=== PATIENT | male | born 1930 | race Caucasian/White ===

== ENCOUNTER 2017-04-24 15:55 | Inpatient (IN) ==
[2017-04-24] MEDS ORDERED: SODIUM CHLORIDE 0.9% 1,000 ML IV STA (16:16)
--- NOTE | 2017-04-24 16:34 | CT Report ---
CT head/brain wo con Indication: Mental status changes. CT BRAIN WITHOUT CONTRAST DLP: 970 mGy*cm. One or more of the following dose reduction techniques was used: Automated exposure control, adjustment of the mA and/or kV according the patient size, or use of iterative reconstruction techniques. Comparison: None. Date of admission: 04/24/2017. Technique: Axial noncontrast CT images of the brain were obtained. Findings: No acute hemorrhage, mass or mass effect. Generalized atrophy is present with prominence of ventricular system. Patchy periventricular white matter hypodensity noted as well. Cortical campos-white junction and structures of the basal ganglia remain well-defined. Mucosal thickening of the ethmoid and nodular mucosal thickening of the left maxillary sinus noted. Remainder paranasal sinuses and mastoid air cells are clear. Impression: 1. No acute intracranial pathology. Generalized atrophy with ventricular prominence. Chronic small vessel ischemic change deep white matter. 2. Ethmoid and left maxillary sinusitis, chronic. PROCEDURE INTERPRETED AT [facility] DEPARTMENT OF RADIOLOGY Final Report Signed by: Manuelito Meyer M.D.
--- NOTE | 2017-04-24 16:44 | XRay Report ---
XR chest 1V portable Indication: Altered mental status. Chest one view: Comparison 10/02/2014. Heart size and mediastinal contour remain normal. Scarring at the left lung base is again noted. Lungs are otherwise clear. Pleural spaces are clear. Impression: No acute cardia pulmonary disease. Chronic scarring left lung base. PROCEDURE INTERPRETED AT [facility] DEPARTMENT OF RADIOLOGY Final Report Signed by: Manuelito Meyer M.D.
[2017-04-24 17:03] LABS: Basophils % 0.6 % (0.0-0.8); Eosinophils % 0.5 % (0.00-10.9); Hematocrit 29.3 VOL% (42.0-52.0); Immature Granulocytes % 0.6 %; Immature Granulocytes Absolute 0.04 #; Lymphocytes # 1.2 10*3/uL (1.4-4.0); Mean Corpuscular HGB Conc 34.1 GM/DL (32-36); Mean Corpuscular Hemoglobin 30 PG (27-34); Mean Corpuscular Volume 86.9 FL (87-102); Mean Platelet Volume 9.5 FL (9.6-12.0); Monocytes # 0.8 10*3/uL (0.11-0.8); Monocytes % 11.9 % (1.7-12.7); Neutrophils # 4.4 10*3/uL (1.4-7.4); Neutrophils % 67.4 % (38.7-73.9); Platelet Count 169 T/CUMM (130-400); Red Blood Count 3.37 MC/CUMM (3.8-5.5); Red Cell Distribution Width 14.6 % (9.3-17.3); White Blood Count 6.5 T/CUMM (4-12)
--- NOTE | 2017-04-24 17:30 | Hospitalist History & Physical ---
Assessment and Plan - Time spent with patient Time spent with patient: Greater than 30 minutes (1) Hematuria Status: Acute Assessment and plan: 86-year-old white male with multiple medical problems admitted by the hospitalist service with hematuria, dehydration, and altered mental status. Patient will be given some IV fluids and allowed to eat this evening. Will consult urology for evaluation in the morning for the hematuria and mass seen on CT. Once his medicines are entered into the system they will be reconciled and restarted. Dr. Dutta will see and examine patient and further recommendations to follow. Current Visit: Yes (2) Dysphagia Status: Acute Current Visit: Yes (3) Diabetes Status: Acute Current Visit: No (4) Anemia Status: Acute Current Visit: No Qualifiers: Anemia type: iron deficiency History of Present Illness Chief complaint: Peeing blood History of present illness: Mr. Singh is a 86 year old white male history of diabetes, depression, Alzheimer's dementia, and GERD presenting to the ED [facility] evaluation of hematuria and altered mental status. Patient 's states patient has not had anything to eat or drink nor taken his medicine since about lunchtime yesterday because he will not wake up long enough to do that. Patient had a CT scan that was done on 04/18 that showed soft tissue mass within the right renal pelvis that resulted in obstruction with it being questionable neoplasm. Patient's states Dr. Polk his PCP in [place] was supposed to get him follow-up with a urologist and that never happened. Patient is awake and alert but he is somewhat confused about his current illness. His lips and skin are dry but otherwise his physical exam is normal. He does have a 3/6 heart murmur heard on exam. Patient denies headache, chest pain, shortness of breath, abdominal pain, low back pain with lower extremity edema. Patient does complain of blurry vision, dysphagia, and burning with urination. His labs from [facility] are relatively normal. He does have a mildly elevated creatinine of 1.6 indicative of his dehydration. His urine is red and cloudy with large erythrocytes. 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 CT the head is negative for acute intracranial process. After discussion with Dr. Coronado the ED physician Dr. Dutta the admitting hospitalist, it was agreed patient be admitted for further evaluation. Once medicines are entered into the [facility] system they will be reconciled. Patient is a full code. Home Medications Medication Instructions Recorded Confirmed Type FLUoxetine [PROzac] 40 mg PO BID 06/19/15 05/02/16 History Gabapentin 300 mg PO BID 06/19/15 05/02/16 History Pioglitazone [Actos] 45 mg PO DAILY 06/19/15 05/02/16 History clonazePAM [Clonazepam] 0.5 mg PO BID PRN 06/19/15 05/02/16 History Donepezil [Aricept] 10 mg PO BEDTIME 08/27/15 05/02/16 History Metformin HCl [Metformin HCl ER] 250 mg PO BID PRN 08/27/15 05/02/16 History Albuterol Inhaler [Proventil 2 puff INH Q6H PRN 03/18/16 05/02/16 History Inhaler] Hypromellose [GenTeal Severe 0.3% 1 drops BOTH EYES DAILY 03/18/16 05/02/16 History Oph Gel] Multivitamin/Iron/Folic Acid 1 tablet PO DAILY 03/18/16 05/02/16 History [Centrum Complete Multivit Tab] Tramadol HCl [Tramadol Tab] 50 mg PO QID PRN 03/18/16 05/02/16 History Iron (Carbonyl) [Feosol Natural 45 mg PO BID tablet 03/21/16 Rx Release Tab] Ranitidine Tab [Zantac Tab] 150 mg PO BID #60 tablet 03/21/16 Rx Naproxen [Naprosyn Tab] 500 mg PO DAILY 05/02/16 05/02/16 History Allergies Allergy/AdvReac Type Severity Reaction Status Date / Time aspirin Allergy Swelling Verified 08/27/15 13:48 of Lip/Tongue/Throat codeine Allergy Swelling Verified 08/27/15 13:48 of Lip/Tongue/Throat iv dye Allergy HIVES Uncoded 08/27/15 13:48 Medical,Surgical,& Family Hx - Medical History Cardio: History of: 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") Endocrine: History of: Diabetes Mellitus (NIDDM) Respiratory: History of: Asthma, Bronchitis, COPD, Obstructive Sleep Apnea ( noncompliant with Cpap) Genitourinary: History of: Prostate Problems (states"prostate problem from urinating at night") Gastrointestinal: History of: GERD, GI Problems (constipation) Musculoskeletal: History of: Musculoskeletal Problems (L ankle issues, right shoulder pains) - Surgical History HEENT Surgeries: Surgical HX of: Tonsilectomy & Adenoidectomy (194) Abdominal Surgeries: Surgical HX of: Appendectomy (1949) - Family History Family History: Reports;: Family Hypertension (mother), Family Stroke - Social History Smoking Status: Never smoker Frequency of Alcohol Use: None Type of Drug Use: None Marital Status: Lives With:: Spouse Functional capacity: uses cane/walker Review of systems: A complete 10 system review of systems was obtained and pertinent positives and negatives per HPI Exam - Constitutional Vitals: Period Temp Pulse Resp BP Sys/Velazquez Pulse Ox Last 24 Hr 97.4 F-97.4 F 89-89 18-18 162-162/88-88 96 Exam: Constitutional System: [Mild] distress. [No] tremulousness. Head: Normocephalic, atraumatic. Ears, Nose and Throat System: No evidence of Otitis or Mastoiditis. No epistaxis or discharge Eyes System: Pupils equal, round, and reactive. Extraocular muscles intact. Neck: Supple, without adenopathy, [No] jugular venous distention. No thyromegaly , neck mass, or prior surgery apparent. Respiratory System: Chest [clear] to auscultation. Cardiovascular System: Heart with [regular] rate and rhythm. 3/6 murmur. GI System: Abdomen [soft], [non]tender. [Normo]active bowel sounds present. Musculoskeletal System: limbs with [no] pedal edema. [Full] distal pulses. Neurological System: [No discernable] sensory deficit. [No] aphasia Psychiatric System: Conversation is rational but he does get confused during conversation Results - Labs CBC & BMP: 04/24/17 16:53 Lab Results: I have reviewed the past 24 hour labs - Diagnostic Findings Procedure: Chest x-ray: report reviewed by me (No acute process. Chronic scarring left lung base.), CT: report reviewed by me (CT the head shows no acute intracranial pathology with generalized atrophy. Chronic small vessel ischemic change deep white matter. Ethmoid and left maxillary sinusitis chronic.)
[2017-04-24 17:34] LABS: Albumin 3.4 G/DL (3.4-5.0); Bilirubin,Total 0.6 MG/DL (0.2-1.0); Calcium 8.8 MG/DL (8.5-10.1); Osmolality,Calculated 274.8 MOS/KG (273-304); Total Protein 6.5 G/DL (6.4-8.3)
--- NOTE | 2017-04-24 17:57 | Emergency Department Note ---
I, Felicia Wood, am scribing for, and in the presence of, Edu Coronado MD 16: 19. IIvonne Kevin Lee, MD, personally performed the services described in this documentation, ascribed by Felicia Wood in my presence, and it is both accurate and complete 757 . Arrival - Arrival Chief Complaint: Altered Mental Status ED Nursing Triage Note: pt was transfered from [facility] for alt loc and ?renal mass. pt has had multi falls Mode of Arrival: Stretcher Limitations: Altered Mental Status (pleasantly confused) Source: Patient, Significant other - History of Present Illness HPI Narrative: Pt is a 86 y/o male who was transferred from [facility] ED for further evaluation of AMS. Pt is in early stages of ALheimzer's, and is pleasantly confused only oriented to self and place at this time. Pt c/o of dysuria, hematuria, no PO intakes since yesterday, and intermittently productive cough. Pt's PCP is Dr. Polk. Spouse notes next consult that they needed to do was with a neurologist. Onset (ago): day(s) Consistency: constant, intermittent Severity: mild, moderate Severity scale (1-10): 3 Allergies/Adverse Reactions: Allergies Allergy/AdvReac Type Severity Reaction Status Date / Time aspirin Allergy Swelling Verified 08/27/15 13:48 of Lip/Tongue/Throat codeine Allergy Swelling Verified 08/27/15 13:48 of Lip/Tongue/Throat iv dye Allergy HIVES Uncoded 08/27/15 13:48 Home Medications: Home Medications Medication Instructions Recorded Confirmed Type FLUoxetine [PROzac] 40 mg PO BID 06/19/15 05/02/16 History Gabapentin 300 mg PO BID 06/19/15 05/02/16 History Pioglitazone [Actos] 45 mg PO DAILY 06/19/15 05/02/16 History clonazePAM [Clonazepam] 0.5 mg PO BID PRN 06/19/15 05/02/16 History Donepezil [Aricept] 10 mg PO BEDTIME 08/27/15 05/02/16 History Metformin HCl [Metformin HCl ER] 250 mg PO BID PRN 08/27/15 05/02/16 History Albuterol Inhaler [Proventil 2 puff INH Q6H PRN 03/18/16 05/02/16 History Inhaler] Hypromellose [GenTeal Severe 0.3% 1 drops BOTH EYES DAILY 03/18/16 05/02/16 History Oph Gel] Multivitamin/Iron/Folic Acid 1 tablet PO DAILY 03/18/16 05/02/16 History [Centrum Complete Multivit Tab] Tramadol HCl [Tramadol Tab] 50 mg PO QID PRN 03/18/16 05/02/16 History Iron (Carbonyl) [Feosol Natural 45 mg PO BID tablet 03/21/16 Rx Release Tab] Ranitidine Tab [Zantac Tab] 150 mg PO BID #60 tablet 03/21/16 Rx Naproxen [Naprosyn Tab] 500 mg PO DAILY 05/02/16 05/02/16 History Review of System - Review of System ROS unobtainable: due to mental status (mildly confused) Medical,Surgical,& Family Hx - Medical History Cardio: History of: 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") Endocrine: History of: Diabetes Mellitus (NIDDM) Respiratory: History of: Asthma, Bronchitis, COPD, Obstructive Sleep Apnea ( noncompliant with Cpap) Genitourinary: History of: Prostate Problems (states"prostate problem from urinating at night") Gastrointestinal: History of: GERD, GI Problems (constipation) Musculoskeletal: History of: Musculoskeletal Problems (L ankle issues, right shoulder pains) - Surgical History HEENT Surgeries: Surgical HX of: Tonsilectomy & Adenoidectomy (1946) Abdominal Surgeries: Surgical HX of: Appendectomy (1949) - Family History Family History: Reports;: Family Hypertension (mother), Family Stroke - Social History Smoking Status: Never smoker Frequency of Alcohol Use: None Type of Drug Use: None Marital Status: Lives With:: Spouse Functional capacity: independent ambulation Exam Vital Signs: Vital Signs Temperature 97.4 F L 04/24/17 15:59 Pulse Rate 89 04/24/17 15:59 Respiratory Rate 18 04/24/17 15:59 Blood Pressure 162/88 04/24/17 15:59 O2 Sat by Pulse Oximetry 96 04/24/17 15:59 - General General appearance: alert, in no apparent distress, other (spouse notes confusion is worse than nml) - Head Head exam: Present: atraumatic, normocephalic - Eye Eye exam: Present: PERRL, EOMI - ENT ENT exam: Present: mucous membranes dry. Absent: mucous membranes moist - Neck Neck exam: Present: full ROM - Chest Chest inspection: Present: symmetric chest wall rise - Respiratory Respiratory exam: Present: normal lung sounds bilaterally. Absent: respiratory distress - Cardiovascular Cardiovascular exam: Present: regular rate, normal rhythm, normal heart sounds - Abdominal Exam Abdominal exam: Present: soft. Absent: tenderness - Extremities Exam Extremities exam: Present: full ROM. Absent: tenderness, pedal edema - Neurological Exam Neurological exam: Present: alert, CN II-XII intact. Absent: oriented X3 (x2), motor sensory deficit - Psychiatric Psychiatric exam: Absent: normal mood (pleasantly confused) - Skin Skin exam: Present: warm, dry Course Course Narrative: will admit for further workup of AMS and urology consult for renal mass and hematuria Results - Labs CBC & BMP: 04/24/17 16:53 04/24/17 16:53 Lab Results: I have reviewed the patients labs Labs: Laboratory Tests 04/24/17 16:53 WBC 6.5 RBC 3.37 L Hgb 10.0 L Hct 29.3 L MCV 86.9 L Plt Count 169 MPV 9.5 L Lymph % (Auto) 19.0 L Lymph # (Auto) 1.2 L Laboratory Tests 04/24/17 16:53 Sodium 137 Potassium 4.0 Chloride 102 BUN 25 H Creatinine 1.50 H GFR Calculation 46 Glucose 69 L Albumin/Globulin Ratio 1.0 L - Diagnostic Findings Procedure: Chest x-ray: report reviewed by me (No acute cardia pulmonary disease. Chronic scarring left lung base.), CT: report reviewed by me (Head wo con: 1. No acute intracranial pathology. Generalized atrophy with ventricular prominence. Chronic small vessel ischemic change deep white matter. 2. Ethmoid and left maxillary sinusitis, chronic.) Disposition Clinical Impression: Altered mental status, Hematuria, Dehydration, Renal mass Case discussed with: patient, patient's family Disposition: Still a Patient Condition: Stable
[2017-04-24] MEDS ORDERED: LORazepam 2 MG/1 ML VIAL IV STA (19:09)
[2017-04-24] MEDS ORDERED: LORazepam 2 MG/1 ML VIAL ONE (19:11)
[2017-04-24] MEDS ORDERED: GLUCAGON 1 MG VIAL IM PRN (19:33)
[2017-04-24] MEDS ORDERED: ONDANSETRON 4 MG/2 ML VIAL IV PRN (19:33)
[2017-04-24] MEDS ORDERED: DEXTROSE 50% 25 GM/50 ML SYRINGE IV PRN (19:33)
[2017-04-24] MEDS: SODIUM CHLORIDE 0.9% 1,000 ML IV SCH (21:22)
[2017-04-24] MEDS: ENOXAPARIN 40 MG/0.4 ML SYRINGE SUBCUT SCH (21:23)
[2017-04-24] MEDS: INSULIN LISPRO 100 UNIT/ML SUBCUT SCH (21:24)
[2017-04-24 22:20] LABS: Apearance,Urine CLOUDY (Clear); Bilirubin,Urine Negative (Negative); Blood, Urine Large mg/dL (Negative); Glucose,Urine (UA) 50 mg/dL (Negative); Ketones,Urine 5 mg/dL (Negative); Nitrite,Urine Negative (Negative); Protein,Urine 100 MG/DL; RBC,Urine 3799 /HPF (0-4); Urine Color Red (Yellow); Urine Specific Gravity 1.011 (1.001-1.035); Urine Urobilinogen < 2.0 EU/DL (0.2-1.0)
[2017-04-25] MEDS: ACETAMINOPHEN 325 MG TABLET PO PRN ×3 (03:33→21:28)
[2017-04-25] MEDS ORDERED: guaiFENesin 200 MG/10 ML UDCUP PO PRN (03:41)
[2017-04-25 05:11] LABS: Basophils % 0.7 % (0.0-0.8); Eosinophils # 0.1 10*3/uL (0.0-0.87); Eosinophils % 2.2 % (0.00-10.9); Hematocrit 27.9 VOL% (42.0-52.0); Hemoglobin 9.2 GM/DL (14.0-18.0); Immature Granulocytes % 0.5 %; Immature Granulocytes Absolute 0.03 #; Lymphocytes % 16.5 % (21.2-54.2); Mean Corpuscular Hemoglobin 29 PG (27-34); Mean Corpuscular Volume 87.5 FL (87-102); Mean Platelet Volume 9.9 FL (9.6-12.0); Monocytes # 0.8 10*3/uL (0.11-0.8); Monocytes % 13.5 % (1.7-12.7); Neutrophils % 66.6 % (38.7-73.9); Platelet Count 170 T/CUMM (130-400); Red Blood Count 3.19 MC/CUMM (3.8-5.5); Red Cell Distribution Width 14.4 % (9.3-17.3)
[2017-04-25 05:40] LABS: Calcium 8.6 MG/DL (8.5-10.1); Osmolality,Calculated 280.5 MOS/KG (273-304)
[2017-04-25] MEDS: INSULIN LISPRO 100 UNIT/ML SUBCUT SCH ×4 (08:37→20:36)
[2017-04-25] MEDS: PANTOPRAZOLE 40 MG TABLET PO SCH ×2 (09:52→12:21)
--- NOTE | 2017-04-25 10:51 | Hospitalist Progress Note ---
Assessment and Plan (1) Hematuria Status: Acute Assessment and plan: Impression: 1. Gross hematuria. 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 2. Abnormal mental status. With hallucinations and dementia, I am concerned about dementia with Lewy bodies. 3. Type II DM Plan: Urology evaluation. Resume home medications. This note was completed using [employer] ([employer]) voice recognition software. There may be pmp certified project manager errors as a result. Current Visit: Yes Hospitalist: Subjective Interval history: Follow-up hematuria with renal mass and confusion. The patient has apparently been receiving a workup for hematuria for the past couple of months. After several CT scans and an MRI, it appears that he has a right renal mass with partial obstruction. There is also question of a mass in the base of the left lung. Urology has not yet seen the patient regarding the above. The patient was sent over from his local hospital when he had presented for evaluation of hematuria. He was also confused. reports a subacute onset of confusion, with associated decrease in his memory and hallucinations. The patient is apparently been seeing people in his house that are not there. He also has had trouble recognizing familiar faces in surroundings. He was started on Aricept and Namenda, but was apparently not able to tolerate the Aricept. He is currently on Namenda, gabapentin, Klonopin, and Prozac for various problems including anxiety and peripheral neuropathy. He has been a diabetic for years. There is no history of any travel outside of the [place] over the past 50 years. Exam - Constitutional Vitals: Period Temp Pulse Resp BP Sys/Velazquez Pulse Ox Last 24 Hr 97.4 F-98.3 F 80-89 10-20 140-175/72-103 90-96 Vital signs are noted above. Heart is regular with no murmur or gallop. Lungs are clear with no rales or wheezes. Abdomen is soft without any significant mass or tenderness. He is obviously confused. Results - Labs CBC & BMP: 04/25/17 04:27 04/25/17 04:27 Lab Results: I have reviewed the past 24 hour labs
[2017-04-25] MEDS: clonazePAM 0.5 MG TABLET PO PRN ×2 (12:21→21:13)
[2017-04-25] MEDS: SODIUM CHLORIDE 0.9% 1,000 ML IV SCH ×2 (12:35→21:21)
--- NOTE | 2017-04-25 13:56 | Urology Consultation ---
Assessment and Plan - Time spent with patient Time spent with patient: Greater than 30 minutes (1) Renal mass Status: Acute Current Visit: Yes (2) Renal mass, right Status: Acute Assessment and plan: Reported right renal pelvic mass on MRI. This has not been evaluated with ureteroscopy or biopsy. This would require a general anesthetic. I have talked to the patient's , and she will speak with the patient's sons. They feel that the patient should undergo any procedure possible to determine etiology of hematuria. However, the is unsure if the patient wants to undergo surgery. He has altered mental status, and they will have to decide if they would like to pursue further workup. The patient is a , and he has [facility]% [place] at the [place] [facility]. He has been followed by the [place] [facility], but has not been seen for hematuria. I spoke with the [place] [facility], and the patient missed a previous appointment. The states she was not aware of the appointment. I have asked the nursing staff to obtain the MRI images from [facility]. We will obtain a renal ultrasound here. Current Visit: Yes (3) Hematuria Status: Acute Assessment and plan: Gross hematuria, this is been intermittent for 1 year. Likely related with upper tract lesion. We will need further workup. The patient had appointment with the [place] [facility] for further workup, but the would like to pursue workup here. I have discussed that he will need general anesthetic, and she wants to speak with her sons prior to making that decision. Current Visit: Yes Qualifiers: Hematuria type: gross Qualified Code(s): R31.0 - Gross hematuria (4) Altered mental status Status: Acute Assessment and plan: Altered mental status with reported dementia. Reports visual hallucinations for some time. I discussed with the that this is unlikely related with any renal lesions, unless he had metastatic disease to the brain. She feels this may be related with medications or worsening dementia. Current Visit: Yes (5) Dehydration Status: Acute Assessment and plan: Dehydration with creatinine of 1.40. [place] in [place] at the [place] [facility] [place] 1.1. [facility] IV hydration will assist with decreasing hematuria, and allow recovery of renal function prior to any planned anesthetic. I have asked to obtain imaging from the MRI center. Will order renal ultrasound here. I will follow-up with the family. I will ask the hospitalist service to evaluate him for surgical intervention. The record reports aortic valvular disease. He will have to be evaluated for surgical intervention prior to any of this. Current Visit: Yes History of Present Illness - Data of Consult Patient: new to practice - Consult Narrative History of present illness: Mr. Singh is a 86 year old male who was seen in our practice many years ago. He has not been seen for over 3 years. His reports he has been followed by the [place] [facility]. I have phoned them, and he had been scheduled for cystoscopy, but never had this appointment. His reports she has had worsening confusion with hallucinations over the last several weeks. He has had recurrent gross hematuria for almost 6 months. An outside physician obtain a CT scan and a MRI with contrast that demonstrated a questionable right renal pelvic mass. He has had complaints of intermittent right renal pain with flank pain and right lower quadrant pain. His reports chronic constipation. No significant unexplained weight loss. He has been dieting for diabetes. He reportedly has Alzheimer's. Over the last week he has been somewhat combative. His reports this is gotten progressively worse in the last several months. No nausea vomiting. Onset of hematuria has been gradual. It is intermittent. It seems to be worsening. Intermittent clots. 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 This is been followed for "20 years "and he had elected for nonoperative management. He had been on Flomax and finasteride prescribed by the [place]. CC: Wilber Bean MD Hematuria with possible right renal pelvic mass - Home Medications and Allergies Home Medications: Home Medications Medication Instructions Recorded Confirmed Type FLUoxetine [PROzac] 40 mg PO BID 06/19/15 04/25/17 History Gabapentin 300 mg PO BID 06/19/15 04/25/17 History Pioglitazone [Actos] 45 mg PO DAILY 06/19/15 04/25/17 History clonazePAM [Clonazepam] 0.5 mg PO BID PRN 06/19/15 04/25/17 History Donepezil [Aricept] 10 mg PO BEDTIME 08/27/15 04/25/17 History Albuterol Inhaler [Proventil 2 puff INH Q6H PRN 03/18/16 04/25/17 History Inhaler] Hypromellose [GenTeal Severe 0.3% 1 drops BOTH EYES DAILY 03/18/16 04/25/17 History Oph Gel] Tramadol HCl [Tramadol Tab] 50 mg PO QID PRN 03/18/16 04/25/17 History ALPRAZolam [Alprazolam] 0.25 mg PO TID PRN 04/25/17 04/25/17 History Acetaminophen Tab [Tylenol Tab] 500 mg PO Q6HR PRN 04/25/17 04/25/17 History Albuterol Inhaler [Proventil 2 puff INH Q6H PRN 04/25/17 04/25/17 History Inhaler] Cholecalciferol (Vitamin D3) 400 unit PO DAILY 04/25/17 04/25/17 History [Vitamin D3] Famotidine [Pepcid AC] 20 mg PO DAILY 04/25/17 04/25/17 History Finasteride 5 mg PO DAILY 04/25/17 04/25/17 History Loratadine Tab [Claritin Tab] 10 mg PO DAILY 04/25/17 04/25/17 History Memantine HCl [Namenda] 10 mg PO BID 04/25/17 04/25/17 History Montelukast Tab [Singulair Tab] 10 mg PO DAILY 04/25/17 04/25/17 History Nitrofurantoin Macro/[place] 100 mg PO BID 04/25/17 04/25/17 History [Macrobid] Nitroglycerin Sl Tab [Nitrostat] 0.4 mg SL Q5M PRN 04/25/17 04/25/17 History Pantoprazole Tab [Protonix Tab] 40 mg PO BID 04/25/17 04/25/17 History Promethazine Tab [Phenergan Tab] 25 mg PO Q6H PRN 04/25/17 04/25/17 History Simethicone 180 mg PO DAILY 04/25/17 04/25/17 History Allergies/Adverse Reactions: Allergies Allergy/AdvReac Type Severity Reaction Status Date / Time aspirin Allergy Swelling Verified 08/27/15 13:48 of Lip/Tongue/Throat codeine Allergy Swelling Verified 08/27/15 13:48 of Lip/Tongue/Throat iv dye Allergy HIVES Uncoded 08/27/15 13:48 ROS unobtainable: due to mental status - Constitutional Constitutional: Present: fatigue, frequent falls (Long history, refused surgical intervention per ENT (according to )), weakness - EENT Eyes: Absent: diplopia Ears: Present: decreased hearing Nose, mouth and throat: Absent: dysphagia, epistaxis, hoarseness - Cardiovascular Cardiovascular: Present: chest pain at rest (Left chest wall pain), edema ( Trace edema to lower extremities) - Respiratory Respiratory: Present: cough, pain on inspiration (Left chest wall) - Gastrointestinal Gastrointestinal: Present: constipation. Absent: hematemesis, hematochezia - Genitourinary Genitourinary: Present: hematuria, urinary frequency, urinary incontinence. Absent: scrotal swelling - Musculoskeletal Musculoskeletal: Present: arthralgias - Neurological Neurological: Present: behavioral changes, confusion, memory loss - Psychiatric Psychiatric: Present: auditory hallucinations, memory loss - Endocrine Endocrine: Present: other (Diabetes). Absent: cold intolerance, heat intolerance - Hematologic/Lymphatic Hematologic/Lymphatic: Present: easy bruising. Absent: easy bleeding Exam - Constitutional Vitals: Period Temp Pulse Resp BP Sys/Velazquez Pulse Ox Last 24 Hr 97.4 F-98.4 F 80-95 10-20 140-181/72-103 90-96 General appearance: no acute distress, other (Sleeping at time of exam) - Head Head exam: Present: normal inspection, atraumatic - Eye Eye exam: Absent: conjunctival injection - ENT ENT exam: Present: normal oropharynx - Neck Neck exam: Present: normal inspection - Respiratory Respiratory exam: Present: clear to auscultation bilaterally. Absent: rales, rhonchi - Cardiovascular Cardiovascular exam: Present: regular rate and rhythm - GI/Abdominal GI/Abdominal exam: Present: normal bowel sounds, soft. Absent: rebound - Genitourinary Genitourinary: scrotum without lesions, cysts, edema or rash, penis with no lesions or discharge (Uncircumcised phallus; prostate exam deferred due to patient sleeping and agitation ( reports he just went to sleep and has been combative)) - Extremities Exam Extremities exam: Present: normal capillary refill. Absent: edema - Back Exam Back exam: Absent: CVA tenderness (L), CVA tenderness (R) - Neurological Exam Neurological exam: Present: altered - Psychiatric Psychiatric exam: Present: agitated - Skin Skin exam: Present: warm, dry Results - Labs CBC & BMP: 04/25/17 04:27 04/25/17 04:27 Lab Results: I have reviewed the past 24 hour labs - Diagnostic Findings Procedure: CT Abdomen and Pelvis: report reviewed by me (Outside CT scan report of right renal pelvic soft tissue lesion; left partial staghorn calculus), MRI: report reviewed by me (Outside MRI with reported right renal pelvic lesion consistent with possible urothelial carcinoma) Medical,Surgical,& Family Hx - Medical History Cardio: History of: 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") Psychological: History of: Psychiatric Problems (Hallucinations, visual) Neurology: History of: Dementia HEENT: History of: HEENT Problems (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) Endocrine: History of: Diabetes Mellitus (NIDDM) Respiratory: History of: Asthma, Bronchitis, COPD, Obstructive Sleep Apnea ( noncompliant with Cpap) Genitourinary: History of: Kidney Stones (Left upper pole partial staghorn calculus), Prostate Problems (states"prostate problem from urinating at night") , Problems (Gross hematuria) Gastrointestinal: History of: GERD, GI Problems (constipation) Musculoskeletal: History of: Musculoskeletal Problems (L ankle issues, right shoulder pains) Hematology: History of: Anemia - Surgical History HEENT Surgeries: Surgical HX of: Tonsilectomy & Adenoidectomy (1946) Abdominal Surgeries: Surgical HX of: Appendectomy (1949) - Family History Family History: Reports;: Family Hypertension (mother), Family Stroke - Social History Smoking Status: Former smoker Have you smoked in the last 12 months: No Time spent discussing smoking cessation with patient: 3 to 10 minutes Frequency of Alcohol Use: None Type of Drug Use: None Marital Status: Lives With:: Spouse
--- NOTE | 2017-04-25 16:05 | Ultrasound Report ---
Renal ultrasound Indication: Hematuria, right renal pelvis mass Comparison: None available Findings: Kidneys are normal in size. There is suggestion of a dilated calyx versus of parapelvic cyst in the upper pole the right kidney. There is a calculus in the upper pole the left kidney 2.4 x 2.1 cm in size.. No hydronephrosis or nephrolithiasis is seen. The right renal length is 12.0 cm. The left renal length is 12.1 cm. No free fluid or other abnormality is seen. Impression: Left-sided nephrolithiasis. Right parapelvic cyst versus dilated calyx upper pole. No other evidence of abnormality demonstrated. Ultrasound images stored and captured. PROCEDURE INTERPRETED AT [facility] DEPARTMENT OF RADIOLOGY Final Report Signed by: Dr. Song Mcginnis
[2017-04-25] MEDS: HALOPERIDOL 5 MG/ML AMP IV PRN (16:26)
[2017-04-25] MEDS: ENOXAPARIN 40 MG/0.4 ML SYRINGE SUBCUT SCH (21:12)
[2017-04-25] MEDS: MEMANTINE 5 MG TABLET PO SCH (21:13)
[2017-04-25] MEDS: GABAPENTIN 300 MG CAPSULE PO SCH (21:13)
[2017-04-25] MEDS: FLUoxetine 20 MG CAPSULE PO SCH (21:13)
[2017-04-26] MEDS: HALOPERIDOL 5 MG/ML AMP IV PRN (00:42)
--- NOTE | 2017-04-26 06:52 | Urology Progress Note ---
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 This has not been evaluated with ureteroscopy or biopsy. This would require a general anesthetic. I have talked to the patient's , and she will speak with the patient's sons. They feel that the patient should undergo any procedure possible to determine etiology of hematuria. However, the is unsure if the patient wants to undergo surgery. He has altered mental status, and they will have to decide if they would like to pursue further workup. The patient is a , and he has 100% [place] at the [facility]. He has been followed by the [facility], but has not been seen for hematuria. I spoke with the [facility], and the patient missed a previous appointment. The states she was not aware of the appointment. I have asked the nursing staff to obtain the MRI images from [facility] imaging center. Renal ultrasound obtained here with reported possible lance pelvic cyst to the right kidney. Known left stone reported. 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 This has not been evaluated with ureteroscopy or biopsy. This would require a general anesthetic. I have talked to the patient's , and she will speak with the patient's sons. They feel that the patient should undergo any procedure possible to determine etiology of hematuria. However, the is unsure if the patient wants to undergo surgery. He has altered mental status, and they will have to decide if they would like to pursue further workup. The patient is a , and he has 100% disability at the [facility]. He has been followed by the [facility], but has not been seen for hematuria. I spoke with the [facility], and the patient missed a previous appointment. The states she was not aware of the appointment. I have asked the nursing staff to obtain the MRI images from [facility] imaging center. Still awaiting MRI to be loaded into our system. Current Visit: Yes (3) Hematuria Status: Acute Assessment and plan: Gross hematuria, this is been intermittent for 1 year. Likely related with upper tract lesion. We will need further workup. The patient had appointment with the [facility] for further workup, but the would like to pursue workup here. I have discussed that he will need general anesthetic, and she wants to speak with her sons prior to making that decision. Reported iodine allergy-needs metastatic workup. Needs CT chest to rule out metastatic disease. May need non-iodinated contrast with possibility of preprocedure steroids to decrease risk of allergy. Consider holding Lovenox, as he is admitted with hematuria and anemia. Agree with SCDs if patient will wear them, as he is combative. Current Visit: Yes Qualifiers: Hematuria type: gross Qualified Code(s): R31.0 - Gross hematuria (4) Altered mental status Status: Acute Assessment and plan: Altered mental status with reported dementia. Reports visual hallucinations for some time. I discussed with the that this is unlikely related with any renal lesions, unless he had metastatic disease to the brain. She feels this may be related with medications or worsening dementia. Persistent combativeness overnight. Current Visit: Yes (5) Dehydration Status: Acute Assessment and plan: Dehydration with creatinine of 1.40. His creatinine in December at the [facility] was 1.1. He has been on Flomax and finasteride per [facility] records. IV hydration will assist with decreasing hematuria, and allow recovery of renal function prior to any planned anesthetic. I have asked to obtain imaging from the MRI center. Will order renal ultrasound here. I will follow-up with the family. I will ask the hospitalist service to evaluate him for surgical intervention. The record reports aortic valvular disease. He will have to be evaluated for surgical intervention prior to any of this. If needed, hopefully any echo cardiogram or other studies could be done today. Current Visit: Yes Urology - PN: Subj Interval history: Patient with episodes of combativeness overnight. Nurse reports they used Haldol, and he calmed down. Urine has cleared with IV hydration. He is voiding into a diaper currently. He has been very confused and unable to be reoriented per the nursing staff. He and his are following sleeping this morning. MRI of the abdomen with contrast is being obtained from [facility]. He had this as an outside study but only a report is available. The medical records are attempting to obtain this to be loaded in our system for review. Exam - Constitutional Vitals: Period Temp Pulse Resp BP Sys/Velazquez Pulse Ox Last 24 Hr 97.4 F-98.4 F 83-95 16-21 163-181/81-96 90-94 General appearance: no acute distress (Sleeping currently) - Head Head exam: Present: normocephalic, atraumatic - Respiratory Respiratory exam: Absent: accessory muscle use, stridor, wheezes - Cardiovascular Cardiovascular exam: Present: regular rate and rhythm - GI/Abdominal GI/Abdominal exam: Present: normal bowel sounds, soft. Absent: rebound - Genitourinary Genitourinary: penis with no lesions or discharge - Neurological Exam Neurological exam: Present: other (No focal motor deficits) - Psychiatric Psychiatric exam: Present: other (Agitated overnight, but sleeping currently) - Skin Skin exam: Present: warm, dry Results - Labs CBC & BMP: 04/25/17 04:27 04/25/17 04:27 Lab Results: I have reviewed the past 24 hour labs
[2017-04-26] MEDS: INSULIN LISPRO 100 UNIT/ML SUBCUT SCH ×4 (08:55→21:09)
[2017-04-26] MEDS: LORATADINE 10 MG TABLET PO SCH (08:56)
[2017-04-26] MEDS: FINASTERIDE 5 MG TABLET PO SCH (08:56)
[2017-04-26] MEDS: GABAPENTIN 300 MG CAPSULE PO SCH ×2 (08:56→21:09)
[2017-04-26] MEDS: CARBOXYMETHYLCELLULOSE 1% OPH SOLN BOTH EYES SCH (08:56)
[2017-04-26] MEDS: FLUoxetine 20 MG CAPSULE PO SCH ×2 (08:57→21:10)
[2017-04-26] MEDS: MEMANTINE 5 MG TABLET PO SCH ×2 (08:57→21:09)
[2017-04-26] MEDS: MONTELUKAST 10 MG TABLET PO SCH (08:57)
[2017-04-26] MEDS: PANTOPRAZOLE 40 MG TABLET PO SCH (08:57)
[2017-04-26] MEDS: PIOGLITAZONE 45 MG TABLET PO SCH (08:57)
[2017-04-26] MEDS: clonazePAM 0.5 MG TABLET PO PRN ×2 (09:03→21:00)
[2017-04-26] MEDS: SODIUM CHLORIDE 0.9% 1,000 ML IV SCH ×2 (09:06→19:15)
--- NOTE | 2017-04-26 10:33 | Hospitalist Progress Note ---
Assessment and Plan (1) Hematuria Status: Acute Assessment and plan: Impression: 1. Gross hematuria. 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 2. 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 3. Type II DM Plan: Noncontrasted chest CT to evaluate the possible left basilar pulmonary nodule as well as the remainder of the lung valdez. Family will decide about biopsy and the attendant risk of general anesthesia. Assuming that the biopsy does indeed show malignant process, they would also have to be aware of the risks associated with a complex operation to remove the right kidney and ureter. This note was completed using [employer] voice recognition software. There may be french polisher errors as a result. Current Visit: Yes Qualifiers: Hematuria type: gross Qualified Code(s): R31.0 - Gross hematuria Hospitalist: Subjective Interval history: Follow-up gross hematuria with possible renal mass and dementia. The patient is currently sedated. The says that he has been up and fighting most of the night. I had an opportunity to discuss the case with urology. We are of the same opinion that general anesthesia would be risky in this elderly demented man. Family will have to decide if they are willing to accept that risk for a tissue diagnosis. Exam - Constitutional Vitals: Period Temp Pulse Resp BP Sys/Velazquez Pulse Ox Last 24 Hr 97.4 F-99.2 F 85-103 16-21 145-181/75-96 91-94 Vital signs are noted above. He is currently asleep after sedation. Heart is regular with distant tones and no murmur. Lungs are clear with no rales or wheezes. Results - Labs CBC & BMP: 04/25/17 04:27 04/25/17 04:27 Lab Results: I have reviewed the past 24 hour labs
--- NOTE | 2017-04-26 10:40 | Event Note ---
Spoke with and family friend bedside. The patient's MRI and CT scan that were performed at the outside facility are now available in our system. I had reviewed them prior to our conversation. The imaging does appear to have an enhancing lesion in the right renal pelvis. 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 On a recent CT abdomen and pelvis there is reported a lower pulmonary nodule. There is no dedicated thoracic imaging. I have spoken at length about the risk of surgery and an 86-year-old with altered mental status. She understands that he may not survive the surgery, or be dependent on a ventilator. Further anesthesia may exacerbate his dementia. I am very happy to perform ureteroscopy with biopsy of this lesion if the family is in agreement to pursue aggressive therapy. I have spoken with Dr. Bean, his managing hospitalist, and we will order a CT of his chest. He has a contrast allergy, and so we will likely perform this as a Noncon scan. If he has diffuse pulmonary nodules, then the family will have to decide how aggressive they would like to be. I have posted him for Monday morning. I will need to know tomorrow, as we will have to arrange for holmium laser to be available. The will speak with his 3 adult sons, and they will come to a decision by tomorrow.
[2017-04-26] MEDS ORDERED: cefTRIAXone 1,000 MG in SODIUM CHLORIDE 0.9% 100 ML IV ONE (11:02)
--- NOTE | 2017-04-26 15:48 | CT Report ---
History: Transitional cell carcinoma right kidney. Lung mass Date: 04/26/2017 Study: CT chest without contrast Comparison exam: CT chest June 25, [address] sections were obtained through the lungs without contrast. The CT exam was performed using one or more of the following dose reduction techniques: Automated exposure control, adjustment of the mA and/or kV according to patient size, or use of iterative reconstruction technique. There is no mediastinal lymphadenopathy or mediastinal mass. There is some moderate coronary artery calcification involving the left anterior descending coronary artery. There is no significant pleural or pericardial effusion. There is some mild strandy and hazy atelectatic change in the lower lobes. There is a nonspecific 10 mm noncalcified pleural-based nodule in the left lower lobe laterally seen on image 82, not present in 2009. There is a 4 mm noncalcified pleural-based nodule in the left upper lobe on image 46 on the axial images, not present in 2009. There is a 7 mm noncalcified nodule posteriorly in the right upper lobe seen on image 40. There is scattered mild to moderate thoracic spondylosis. The partially visualized upper abdomen is remarkable for some hyperdense opacity within the dilated right renal collecting system in this patient with a reported history of transitional cell carcinoma. There is a staghorn type calculus measuring 2.3 cm in the upper left kidney. Impression: 3 noncalcified pulmonary nodules, 2 on the left, not present in 2009. These could represent metastatic lesions or interval development of noncalcified granulomata. None of these are ideal candidates for percutaneous biopsy without elevated risk of pneumothorax. Consider short-term follow-up CT chest or nonemergent PET scan No mediastinal lymphadenopathy Mild atelectatic changes in the lower lobes PROCEDURE INTERPRETED AT [facility] DEPARTMENT OF RADIOLOGY Final Report Signed by: Dr. Sarah Ward
[2017-04-26] MEDS: ACETAMINOPHEN 325 MG TABLET PO PRN (17:03)
[2017-04-26] MEDS ORDERED: traMADol 50 MG TABLET PO PRN (18:43)
[2017-04-26] MEDS: KETOROLAC 30 MG/1 ML VIAL IV PRN (21:00)
[2017-04-26] MEDS: DESITIN 4OZ/NYSTATIN 15 GRAM MIXTURE PASTE TOP SCH (21:10)
[2017-04-27] MEDS: SODIUM CHLORIDE 0.9% 1,000 ML IV SCH ×2 (05:02→15:06)
[2017-04-27] MEDS ORDERED: ACETAMINOPHEN 325 MG TABLET PO PRN (07:37)
[2017-04-27] MEDS: KETOROLAC 30 MG/1 ML VIAL IV PRN (07:47)
--- NOTE | 2017-04-27 08:01 | Urology Progress Note ---
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 This has not been evaluated with ureteroscopy or biopsy. This would require a general anesthetic. I have talked to the patient's again today, and she will speak with the patient's sons. The is unsure if the patient wants to undergo surgery. He has altered mental status, and they will have to decide if they would like to pursue further workup. 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 This has not been evaluated with ureteroscopy or biopsy. This would require a general anesthetic. I have talked to the patient's , and she will speak with the patient's sons. They feel that the patient should undergo any procedure possible to determine etiology of hematuria. However, the is unsure if the patient wants to undergo surgery. He has altered mental status, and they will have to decide if they would like to pursue further workup. I have told her that she and the family will have to make a decision today. He is posted for tomorrow. Current Visit: Yes (3) Hematuria Status: Acute Assessment and plan: Gross hematuria, this is been intermittent for 1 year. Likely related with upper tract lesion. CT chest without contrast due to iodine allergy. Several new pulmonary nodules noted from prior scan in 2008. None are amenable to biopsy. All less than 1 center. Unclear if these are metastatic lesions. Consider holding Lovenox, as he is admitted with hematuria and anemia. Agree with SCDs if patient will wear them, as he is combative. Current Visit: Yes Qualifiers: Hematuria type: gross Qualified Code(s): R31.0 - Gross hematuria (4) Altered mental status Status: Acute Assessment and plan: Altered mental status with reported dementia. Improving off tramadol. Current Visit: Yes (5) Dehydration Status: Acute Assessment and plan: Hydration will decrease hematuria. I have spoken with the , and explained that he will have intermittent hematuria. This is not uncommon with a renal pelvic lesion. I am awaiting their decision on surgical intervention. We discussed his advanced age. He will be 87 in September. He has dementia with a history of hallucinations. He is very debilitated, and he has severe COPD. I have explained that he may not come off the ventilator even with ureteroscopy and biopsy. Further Dr. Bean has explained to them that his dementia may worsen with a general anesthetic. Finally if this is upper tract urothelial carcinoma, as I suspect, they will have to decide if they want a nephro ureterectomy. I am happy to intervene if that is their wish, but they will have to decide that today. Current Visit: Yes Urology - PN: Subj Interval history: Patient is more alert this morning, per the . Still having hematuria intermittently. He was able to get out of the bed yesterday. Denies nausea vomiting or diarrhea. Tolerating oral intake. Complaining of some left-sided chest wall pain. He had improvement in his overall pain with Toradol yesterday. reports she has spoken with the sons, and they still have not decided what to do about surgery. Exam - Constitutional Vitals: Period Temp Pulse Resp BP Sys/Velazquez Pulse Ox Last 24 Hr 98.6 F-100.2 F 84-103 16-20 145-168/74-81 90-94 General appearance: no acute distress - Head Head exam: Present: normocephalic, atraumatic - Eye Eye exam: Absent: scleral icterus - ENT ENT exam: Present: normal oropharynx - Neck Neck exam: Absent: lymphadenopathy - Respiratory Respiratory exam: Present: clear to auscultation bilaterally. Absent: stridor, wheezes - Cardiovascular Cardiovascular exam: Present: regular rate and rhythm - GI/Abdominal GI/Abdominal exam: Present: normal bowel sounds, soft. Absent: rebound - Genitourinary Genitourinary: penis with no lesions or discharge - Back Exam Back exam: Absent: CVA tenderness (L), CVA tenderness (R) - Neurological Exam Neurological exam: Present: alert (Alert to person today), other (Still some confusion) - Psychiatric Psychiatric exam: Absent: agitated - Skin Skin exam: Present: warm, dry Results - Labs CBC & BMP: 04/25/17 04:27 04/25/17 04:27 Lab Results: I have reviewed the past 24 hour labs
[2017-04-27] MEDS: INSULIN LISPRO 100 UNIT/ML SUBCUT SCH ×2 (08:42→14:17)
[2017-04-27] MEDS: MONTELUKAST 10 MG TABLET PO SCH (08:47)
[2017-04-27] MEDS: clonazePAM 0.5 MG TABLET PO PRN (08:47)
[2017-04-27] MEDS: FLUoxetine 20 MG CAPSULE PO SCH (08:47)
[2017-04-27] MEDS: MEMANTINE 5 MG TABLET PO SCH (08:47)
[2017-04-27] MEDS: DESITIN 4OZ/NYSTATIN 15 GRAM MIXTURE PASTE TOP SCH (08:48)
[2017-04-27] MEDS: PIOGLITAZONE 45 MG TABLET PO SCH (08:48)
[2017-04-27] MEDS: LORATADINE 10 MG TABLET PO SCH (08:48)
[2017-04-27] MEDS: GABAPENTIN 300 MG CAPSULE PO SCH (08:48)
[2017-04-27] MEDS: FINASTERIDE 5 MG TABLET PO SCH (08:48)
[2017-04-27] MEDS: PANTOPRAZOLE 40 MG TABLET PO SCH (08:48)
--- NOTE | 2017-04-27 11:00 | Discharge Summary ---
Hospital Course - Hospital Course Hospital Course: Discharge diagnosis: 1. 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 Urology saw the patient. After several lengthy discussions with the , she has decided against surgery. She is trying to make arrangements to take the patient home today. He can follow-up with his local physicians, and may need some home health. Medication reconciliation has been performed. Regular diet. Activity as tolerated. This note was completed using [employer] voice recognition software. There may be hyperbaric technologist errors as a result. Diagnosis - Discharge Diagnosis (1) Hematuria Status: Acute Discharge Plan - Discharge Data Disposition: Disch To Home/Self Care Condition at Discharge: Stable Discharge Diet: advance to your usual diet Activity: resume usual activities as tolerated - Discharge Medications Continue clonazePAM [Clonazepam] 0.5 mg PO BID PRN PRN Reason: Anxiety Gabapentin 300 mg PO BID Pioglitazone [Actos] 45 mg PO DAILY FLUoxetine [PROzac] 40 mg PO BID Albuterol Inhaler [Proventil Inhaler] 2 puff INH Q6H PRN PRN Reason: Shortness Of Breath/Wheezing Hypromellose [GenTeal Severe 0.3% Oph Gel] 1 drops BOTH EYES DAILY Loratadine Tab [Claritin Tab] 10 mg PO DAILY Acetaminophen Tab [Tylenol Tab] 500 mg PO Q6HR PRN PRN Reason: Pain Mild (1-3) Memantine HCl [Namenda] 10 mg PO BID Cholecalciferol (Vitamin D3) [Vitamin D3] 400 unit PO DAILY Famotidine [Pepcid AC] 20 mg PO DAILY Albuterol Inhaler [Proventil Inhaler] 2 puff INH Q6H PRN PRN Reason: Shortness Of Breath/Wheezing Nitroglycerin Sl Tab [Nitrostat] 0.4 mg SL Q5M PRN PRN Reason: Chest Pain Promethazine Tab [Phenergan Tab] 25 mg PO Q6H PRN PRN Reason: Nausea ALPRAZolam [Alprazolam] 0.25 mg PO TID PRN PRN Reason: Anxiety Montelukast Tab [Singulair Tab] 10 mg PO DAILY Simethicone 180 mg PO DAILY Finasteride 5 mg PO DAILY Pantoprazole Tab [Protonix Tab] 40 mg PO BID Discontinued Donepezil [Aricept] 10 mg PO BEDTIME Tramadol HCl [Tramadol Tab] 50 mg PO QID PRN PRN Reason: Pain Nitrofurantoin Macro/[place] [Macrobid] 100 mg PO BID - Follow Up or Referral - Forms/Instructions Exam - Constitutional Vitals: Period Temp Pulse Resp BP Sys/Velazquez Pulse Ox Last 24 Hr 98.6 F-100.2 F 84-97 16-20 149-168/74-81 90-94 Vital signs are noted above. Heart is regular with a soft systolic murmur. Lungs are fairly clear. He is awake but obviously confused. Discharge Results Labs on day of discharge: Labs from last 24 hours 04/27/17 04/26/17 04/26/17 08:03 18:49 16:17 POC Glucose 85 178 H 116 H 04/26/17 12:13 POC Glucose 109 H DS: Provider Date of admission: 04/24/17 16:45 Primary care physician: . No PCP Attending physician on admission: Gerson Cespedes MD Consults: 04/24/17 19:33 Consult to Physician [CONS] Routine Comment: hematuria, hx renal mass Consulting Provider: Cody Duggan Consulting Provider Notified: Yes When should Consulting Provider be notified: Now Consult to Specialist Group: Urology When should Consulting Provider be notified: Now Person Notified: RAJENDRA Date Notified: 04/25/17 Time Notified: 09:09 04/26/17 11:02 Consult to Anesthesiology [CONS] Routine Consulting Provider: Reason for Anesthesiology: Pre-op Clearance Consult Comment: Right renal pelvic mass with hematuria- possible diag [facility] on Monday am Discharging clinician: Wilber Bean MD Expected date of discharge: 04/27/17 (Notify urology that patient's has declined surgery.)
[2017-04-27] MEDS: CARBOXYMETHYLCELLULOSE 1% OPH SOLN BOTH EYES SCH (12:12)
[2017-04-27 12:19] VITALS: BP 175/88
--- NOTE | 2017-04-27 13:08 | EKG Report ---
Stationary ECG Study [facility] Test Date: 04/27/2017 1:08:17 PM Pat Name: JIMENA MAHONEY Department: Room: 436 Gender: M Cert Occupational Therapy Asst: : [id number] Requested by: Hanny Nunez Order Number: [id number] Reading MD: FREDDIE STEWART Intervals [place] Rate: 83 P: 76 MA: 144 QRS: -8 QRSD: 82 T: 71 QT: 370 QTc: 410 Interpretive Statements SINUS RHYTHM NONSPECIFIC T-WAVE ABNORMALITY Electronically Signed On 04-28-17 18:51:53 CDT by FREDDIE STEWART [email or web address]
--- NOTE | 2017-04-27 14:09 | Event Note ---
Spoke with and patient. Patient is alert and oriented at this present time. The patient and his family have decided against surgical intervention. The patient will continue follow-up with the [place] urology clinic. Weeks have explained that he will continue likely having hematuria. If this is in fact upper tract urothelial carcinoma, the natural history would be metastatic disease. He has advanced age, and almost 87 years old. He may from natural causes. The patient will follow up with us only if needed.
== END 2017-04-27 16:05 | disposition home or self-care (01) | DRG 687 ==
LOC: EDBD → EDUNIT# → N.ED 15:55 → N.EDINP 15:55 → SUATTDRO 16:45 → OBSVTOIN 16:45 → N.4E 19:30
PROVIDERS: ADMIT Family Medicine; ATTEND Internal Medicine Geriatric Medicine